=== PATIENT | male | born 1960 | race Caucasian/White ===

== ENCOUNTER 2023-07-22 19:20 | Emergency (ER) | payer BC, SELFPAY ==
--- NOTE | ~2023-07-22 | CT_ITS ---
EXAMINATION: CT abdomen pelvis w con DATE: 07/22/2023 21:17 INDICATION: TECHNIQUE: Computed tomography (CT) of the abdomen and pelvis was performed without intravenous contr ast. Automated exposure control and iterative reconstruction technique were employed. Exam dose: 137 1.75 mGy-cm total exam DLP. COMPARISON: None. FINDINGS: There is a discoid scarring or atelectasis at the left lower lobe. The lung bases are clear of infiltrate or consolidation. Heart size is normal. No pericardial effusion. Status post cholecystectomy. The liver, spleen, pancreas, adrenal glands and kidneys are unremarkable . No bile duct or pancreatic duct dilatation. The abdominal aorta is of normal caliber, with atherosclerotic calcification. No intraperitoneal or r etroperitoneal or pelvic mass lesion or adenopathy or ascites. Normal appendix. There is pericolic fat stranding and thickening of the wall of the colon near the junction of the zuhair cending and sigmoid colon in the left lower quadrant. There are multiple the left and right colon div erticula. No bowel obstruction or intraperitoneal free air. Left fat-containing inguinal hernia. Small fat-containing umbilical hernia. Diffuse idiopathic skeletal hyperostosis of the thoracic spine. Mild degenerative change of the lumba r spine. Status post right total hip arthroplasty. IMPRESSION: Left colon diverticulitis without abscess or free intraperitoneal air Reviewed, dictated and finalized at [facility]. Reviewed, dictated and finalized at [facility] [employer]
[2023-07-22 19:20] VITALS: BP 111/59; PULSE 85; RESP 20; TEMP 36.3; O2SAT 96
[2023-07-22 19:47] LABS: Basophils Absolute Auto 0.1 K/mm3 (0.0-0.1); Basophils Percent Auto 0.4 % (0.2-1.2); Eosinophils Absolute Auto 0.2 K/mm3 (0-0.3); Eosinophils Percent Auto 1.8 % (0-4.4); Hematocrit 40.6 % (42.0-52.0); Hemoglobin 13.6 g/dL (14.0-18.0); Immature Granulocyte Absolute 0.04 K/mm3 (0.00-0.031); Immature Granulocyte Percent A 0.3 % (0-0.5); Lymphocytes Absolute Auto 3.07 K/mm3 (0.9-3.2); Lymphocytes Percent Auto 25.4 % (18.3-44.2); Mean Corpuscular HGB Conc 33.5 g/dl (32-36); Mean Corpuscular Hemoglobin 31.2 pg (26-34); Mean Corpuscular Volume 93.1 fl (80-100); Mean Platelet Volume 9.2 fl (7.4-10.4); Monocytes Absolute Auto 1.4 K/mm3 (0.1-0.6); Monocytes Percent Auto 11.8 % (2.6-8.5); Neutrophils Absolute Auto 7.3 K/mm3 (1.3-6.7); Neutrophils Percent Auto 60.3 % (45.5-73.1); Platelet Count Result 256 k/mm3 (150-375); Red Blood Count 4.36 M/mm3 (4.6-6.20); Red Cell Distribution Width 12.7 % (11.5-14.5); White Blood Count 12.1 K/mm3 (4.5-10.0)
[2023-07-22 20:00] LABS: Alanine Aminotransferase 31 U/L (6-50); Albumin Level 4.2 g/dL (3.5-5.1); Alkaline Phosphatase 76 U/L (38-126); Anion Gap 13 mmol/L (8-16); Aspartate Amino Transferase 26 U/L (17-59); Bilirubin,Total 0.6 mg/dL (0.2-1.3); Blood Urea Nitrogen 16 mg/dL (9-20); Carbon Dioxide 23 mmol/L (22-30); Chloride 101 mmol/L (98-107); Estimated CRCL calculation 103 ml/min; Estimated Glomerular Filt Rate > 60; Glucose 123 mg/dL (65-110); Lipase 78 U/L (23-300); Potassium 3.9 mmol/L (3.4-5.0); Sodium 137 mmol/L (137-145)
--- NOTE | 2023-07-22 20:28 | ED.ABDPAIN ---
HPI - Abdominal Pain General Chief Complaint: Abdominal Pain Stated Complaint: flank pain Time Seen by Provider: 07/22/23 19:33 Source: patient Mode of arrival: ambulatory Limitations: no limitations History of Present Illness HPI narrative: This is a 62 year old male that presents to the ER for abdominal pain. Ongoing over the last week. Reports left sided abdominal pain that is burning in nature. Reports history of diverticulitis and that this pain feels similar. Denies fever, vomiting or diarrhea. Related Data Allergies Allergy/AdvReac Type Severity Reaction Status Date / Time No Known Allergies Allergy Unverified 07/22/23 19:25 Review of Systems Review of Systems: CONSTITUTIONAL: Denies fever GASTROINTESTINAL: Reports abdominal pain. Denies nausea, vomiting, or diarrhea. GENITOURINARY: Denies dysuria or hematuria. All systems reviewed & are unremarkable except as noted in HPI and below PMFSH Past Medical History Medical History (Updated 07/22/23 @ 22:10 by Sveta Barger PA-C) History of hypertension Family History Family History (System 12/12/19 @ 16:46 by Candace Mclaughlin) Father Family history of chronic obstructive pulmonary disease Family history of heart disease in male family member before age 55 Sibling Family history of chronic obstructive pulmonary disease Family history of diabetes mellitus in first degree relative Family history of heart disease in male family member before age 55 Mother Family history of heart disease in male family member before age 55 Father Family history of coronary artery disease Mother Family history of coronary artery disease Sibling Family history of coronary artery disease Other Family history of tuberculosis Social History Social History (System 12/12/19 @ 16:46 by Candace Mclaughlin) Smoking status: Former smoker Second hand tobacco smoke exposure: No Smoking end date: 08/30/96 Alcohol intake: current Exam Narrative: GENERAL: Well-appearing, well-nourished, and in no acute distress. HEAD: Normocephalic, atraumatic. EYES: EOMI. CHEST: Clear to auscultation. No respiratory distress. No wheezes rales or rhonchi HEART: Regular rate and rhythm. No murmur heard. Normal peripheral pulses. ABDOMEN: Soft, nontender, nondistended, normal active bowel sounds. Tender to palpation throughout the left side of the abdomen, without guarding EXTREMITIES: Normal range of motion. No edema. SKIN: Warm, dry, no rash. NEURO: No focal deficits. Alert and oriented x3. PSYCH: Normal mood and affect Course Course Emergency Course: Patient and family updated on workup and agree with plan of care Vital Signs Vital signs: Vital Signs Temperature 97.3 F L 07/22/23 19:20 Pulse Rate 85 07/22/23 19:20 Respiratory Rate 20 07/22/23 19:20 Blood Pressure 111/59 L 07/22/23 19:20 Pulse Oximetry 96 07/22/23 19:20 Oxygen Delivery Room Air 07/22/23 19:20 Temperature 97.3 F L 07/22/23 19:20 Pulse Rate 85 07/22/23 19:20 Respiratory Rate 20 07/22/23 19:20 Blood Pressure 111/59 L 07/22/23 19:20 Pulse Oximetry 96 07/22/23 19:20 Oxygen Delivery Room Air 07/22/23 19:20 MDM - Abdominal Pain MDM Narrative Medical decision making narrative: Patient presents to the emergency department for left-sided abdominal pain ongoing over the last week. He is afebrile and nontoxic appearing. His vitals are stable. CBC with mild leukocytosis at 12.1. Metabolic panel without concerning findings. Urine without evidence of infection. CT scan abdomen pelvis shows diverticulitis. Patient and family updated on workup and agree with plan of care. Patient felt appropriate for further outpatient management with oral antibiotics. He is to follow up with PCP. He was given warnings to return to the ER Differential Diagnosis Differential diagnosis: Likely constipation and diverticulitis Lab Data Attestation: I reviewed the patient'
[2023-07-22 20:37] LABS: Appearance Urine Clear (Clear); Bilirubin Urine Negative (Negative); Blood Urine Negative (Negative); Color Urine Yellow (Yellow); Glucose Urine UA Negative (Negative); Ketones Urine Negative (Negative); Leukocyte Esterase Ur Negative LEU/UL (Negative); Nitrate Urine Negative (Negative); Protein Urine Negative (Negative); Specific Grav Ur 1.021 (1.001-1.035)
[2023-07-22 20:41] LABS: Add Urine Microscopic? NO
[2023-07-22] MEDS: metroNIDAZOLE 250 MG TABLET 500 MG PO (22:35)
[2023-07-22] MEDS: CIPROFLOXACIN 500 MG TAB PO (22:35)
[2023-07-22 22:36] VITALS: BP 124/76; PULSE 86; RESP 15; O2SAT 98
[2023-07-22 22:39] VITALS: BP 124/74; PULSE 88; RESP 16; O2SAT 98
== END 2023-07-22 22:40 | disposition home or self-care (01) ==
PROVIDERS: Emergency Provider Physician Assistant; PCP Family Medicine
DX: K57.92 Diverticulitis of intestine, part unspecified, without perforation or abscess without bleeding (principal); I10 Essential (primary) hypertension; Z87.891 Personal history of nicotine dependence
CPT/HCPCS: 36415; 74177; 80053; 81003; 83690; 85025; 99284; A9270; Q9967